=== PATIENT | male | born 1975 | race Caucasian/White ===

== ENCOUNTER 2017-12-14 04:00 | Emergency (ER) | payer SELFPAY | END 2017-12-14 04:54 | disposition home or self-care (01) | LOC: D.ER 04:00 | DX: J20.9 Acute bronchitis, unspecified (principal); M54.12 Radiculopathy, cervical region; F17.200 Nicotine dependence, unspecified, uncomplicated ==

== ENCOUNTER 2018-04-07 14:22 | Emergency (ER) | payer SELFPAY ==
[~2018-04-07] VITALS: Ht 170.2 cm; Wt 86.8 kg
[2018-04-07 14:42] VITALS: BP 138/81; Ht 170.2 cm; Wt 86.8 kg
[2018-04-07] MEDS ORDERED: TOPROL XL25 MG PO (14:44)
[2018-04-07 15:11] LABS: BASOPHILS 0.2 % (0-2); EOSINOPHILS 0.1 % (0-7); HEMATOCRIT 50.6 % (42.0-54.0); HEMOGLOBIN 17.7 g/dL (13.5-17.5); IMMATURE GRANULOCYTES 0.2 % (0-5); LYMPHOCYTES 12.6 % (15-50); MCH 29.4 pg (26.0-34.0); MCV 83.9 fL (80.0-100.0); MEAN PLATELET VOLUME 10.4 fL (7.4-10.4); MONOCYTES 10.7 % (2-11); NEUTROPHILS 76.2 % (40-80); PLATELET COUNT 306 10x3/uL (130-400); RBC 6.03 10x6/uL (4.20-6.10); RDW 14.1 % (11.5-14.5); WBC 9.7 10x3/uL (4.8-10.8)
[2018-04-07 15:33] LABS: ALBUMIN 4.8 g/dL (3.4-5.0); ANION GAP 15.4 mmol/L (8-16); BILIRUBIN - TOTAL 1.13 mg/dL (0.2-1.3); CALCIUM 9.1 mg/dL (8.5-10.1); CARBON DIOXIDE 25.2 mmol/L (21.0-32.0); CREATININE - SERUM 2.8 mg/dL (0.6-1.3); POTASSIUM - SERUM 3.6 mmol/L (3.5-5.1); PROTEIN - SERUM 8.7 g/dL (6.4-8.2)
[2018-04-07 16:01] LABS: APPEARANCE CLOUDY (CLEAR); BILIRUBIN NEGATIVE (NEGATIVE); COLOR AMBER (YELLOW); GLUCOSE NEGATIVE (NEGATIVE); KETONE SMALL mg/dL (NEGATIVE); NITRITE NEGATIVE (NEGATIVE); PROTEIN 1+ mg/dL (NEGATIVE); UROBILINOGEN NORMAL (NORMAL)
[2018-04-07 16:02] LABS: WHITE CELLS - URINE 0-5 /hpf (0-5)
[2018-04-07 16:03] LABS: BACTERIA FEW /hpf (NONE SEEN); EPITHELIAL CELLS 0-5 /hpf (0-5); HYALINE CAST 0-5 /lpf (NONE SEEN); MUCUS <1+ /lpf (NONE SEEN); RED CELLS - URINE 0-5 /hpf (0-5)
[2018-04-08 13:30] VITALS: Ht 170.2 cm; Wt 86.8 kg
== END 2018-04-07 15:53 | disposition left against medical advice (07) ==
LOC: D.ER 14:22
PROVIDERS: Emergency Medicine
DX: N17.9 Acute kidney failure, unspecified (principal); I10 Essential (primary) hypertension; F17.200 Nicotine dependence, unspecified, uncomplicated

== ENCOUNTER 2018-04-08 05:54 | Inpatient (IN) | payer SELFPAY ==
[~2018-04-08] VITALS: Ht 170.2 cm; Wt 86.4 kg
[~2018-04-08 05:54] MED LIST: TOPROL XL25 MG PO
[2018-04-08 07:05] VITALS: BP 107/66
[2018-04-08 07:21] VITALS: BP 105/75
[2018-04-08 07:50] LABS: ANION GAP 18.5 mmol/L (8-16); CALCIUM 8.3 mg/dL (8.5-10.1); CARBON DIOXIDE 23.1 mmol/L (21.0-32.0); MAGNESIUM - SERUM 1.9 mg/dL (1.8-2.4); POTASSIUM - SERUM 3.6 mmol/L (3.5-5.1)
[2018-04-08 07:51] LABS: CREATININE - SERUM 4.8 mg/dL (0.6-1.3)
[2018-04-08 09:53] VITALS: BP 119/78
[2018-04-08 10:09] LABS: APPEARANCE HAZY (CLEAR); BILIRUBIN NEGATIVE (NEGATIVE); COLOR DY (YELLOW); GLUCOSE NEGATIVE (NEGATIVE); KETONE NEGATIVE (NEGATIVE); NITRITE NEGATIVE (NEGATIVE); PROTEIN 2+ mg/dL (NEGATIVE); SPECIFIC GRAVITY 1.025 (1.005-1.020); UROBILINOGEN NORMAL (NORMAL)
[2018-04-08 10:11] LABS: AMORPHOUS SEDIMENT <1+ /lpf (NONE SEEN); BACTERIA MANY /hpf (NONE SEEN); EPITHELIAL CELLS 25-50 /hpf (0-5); MUCUS <1+ /lpf (NONE SEEN); WHITE CELLS - URINE 0-5 /hpf (0-5)
[2018-04-08 10:12] LABS: WAXY CAST OCC /lpf (NONE SEEN)
[2018-04-08 10:22] LABS: CREATININE - URINE 478.9 mg/dL (30-125)
[2018-04-08 11:06] VITALS: BP 114/75
[2018-04-08 13:22] VITALS: BP 114/75; BMI 29.8
[2018-04-08 13:30] VITALS: Ht 170.2 cm; Wt 86.4 kg
[2018-04-08 15:25] VITALS: BP 110/59
[2018-04-08 16:05] LABS: CREATINE KINASE 2911 UL (21-232)
[2018-04-08 16:06] LABS: CKMB 21.3 U/L (0.0-3.6)
== END 2018-04-08 15:51 | disposition left against medical advice (07) | DRG 684 ==
LOC: D.ER 05:54 → D.EDHOLD 10:08 → D.M2 10:17
PROVIDERS: Emergency Medicine; Internal Medicine Nephrology
DX: N17.9 Acute kidney failure, unspecified (principal); E86.0 Dehydration; Z59.0 Homelessness; I10 Essential (primary) hypertension; Z72.0 Tobacco use; I95.9 Hypotension, unspecified

== ENCOUNTER 2018-05-27 17:47 | Emergency (ER) | payer MEDICAID ==
[~2018-05-27] VITALS: Ht 170.2 cm; Wt 75.0 kg
[2018-05-27 17:56] VITALS: Ht 170.2 cm; Wt 75.0 kg
[2018-05-27 18:18] LABS: BASOPHILS 0.1 % (0-2); EOSINOPHILS 1.7 % (0-7); HEMATOCRIT 39.3 % (42.0-54.0); HEMOGLOBIN 13.5 g/dL (13.5-17.5); IMMATURE GRANULOCYTES 0.3 % (0-5); LYMPHOCYTES 8.7 % (15-50); MCH 29.3 pg (26.0-34.0); MCHC 34.4 g/dL (31.0-37.0); MCV 85.4 fL (80.0-100.0); MEAN PLATELET VOLUME 9.3 fL (7.4-10.4); MONOCYTES 6.2 % (2-11); PLATELET COUNT 305 10x3/uL (130-400); RDW 13.7 % (11.5-14.5); WBC 7.7 10x3/uL (4.8-10.8)
[2018-05-27 18:31] LABS: ALBUMIN 3.2 g/dL (3.4-5.0); ANION GAP 12.3 mmol/L (8-16); BILIRUBIN - TOTAL 0.36 mg/dL (0.2-1.3); CALCIUM 8.8 mg/dL (8.5-10.1); CARBON DIOXIDE 28.5 mmol/L (21.0-32.0); CREATININE - SERUM 1.2 mg/dL (0.6-1.3); POTASSIUM - SERUM 3.8 mmol/L (3.5-5.1); PROTEIN - SERUM 7.1 g/dL (6.4-8.2)
[2018-05-27 20:30] LABS: APPEARANCE CLEAR (CLEAR); BILIRUBIN NEGATIVE (NEGATIVE); COLOR YELLOW (YELLOW); GLUCOSE NEGATIVE (NEGATIVE); KETONE NEGATIVE (NEGATIVE); NITRITE NEGATIVE (NEGATIVE); PROTEIN NEGATIVE (NEGATIVE); UROBILINOGEN NORMAL (NORMAL)
[2018-05-27 20:34] LABS: UDS - AMPHET POSITIVE QUAL (NEGATIVE); UDS - BARB NEGATIVE QUAL (NEGATIVE); UDS - BENZO NEGATIVE QUAL (NEGATIVE); UDS - COCAINE NEGATIVE QUAL (NEGATIVE); UDS - OPIATE NEGATIVE QUAL (NEGATIVE); UDS - PCP NEGATIVE QUAL (NEGATIVE); UDS - THC POSITIVE QUAL (NEGATIVE)
[2018-05-27 20:59] VITALS: BP 135/80
== END 2018-05-27 20:59 | disposition home or self-care (01) ==
LOC: D.ER 17:47
PROVIDERS: Family Medicine
DX: K59.00 Constipation, unspecified (principal); I12.9 Hypertensive chronic kidney disease with stage 1 through stage 4 chronic kidney disease, or unspecified chronic kidney disease; N18.9 Chronic kidney disease, unspecified

== ENCOUNTER 2018-07-24 23:22 | Inpatient (IN) | payer MEDICAID ==
[~2018-07-24] VITALS: Ht 170.2 cm; Wt 61.4 kg
--- NOTE | ~2018-07-24 | OP ---
PATIENT NAME: ISIS JUNE MEDICAL RECORD: [id number] :71 LOCATION:D.MS Mejia2218 ADMISSION DATE:07/25/18 SURGEON: MELINA CARRILLO MD DATE OF OPERATION: 07/29/2018 PROCEDURES: 1. Left heart catheterization. 2. Selective coronary angiography. 3. Left ventriculogram. INDICATIONS: Angina and cardiomyopathy. PROCEDURE IN DETAIL: After informed consent was obtained with detailed description of risks and benefits as well as alternative therapies, the patient elected to proceed with angiogram and heart catheterization. The right radial area was prepped and draped in normal sterile fashion. Right radial artery was cannulated via modified Seldinger technique with placement of 5-Persian sheath. All catheters were exchanged through this sheath. FINDINGS: Left ventriculogram performed in standard 30-degree BARRIOS view reveals dilated cardiomyopathy. Ejection fraction of 15%. SELECTIVE CORONARY ANGIOGRAPHY: Left main, left anterior descending, left circumflex, and right coronary artery are smooth-walled vessels with no angiographic evidence of coronary artery disease. OVERALL IMPRESSION: 1. No angiographic evidence of coronary artery disease. 2. Dilated nonischemic cardiomyopathy. Ejection fraction 15%. Center medical management and treatment of the cardiomyopathy. TRANSINT:[id number] Voice Confirmation ID: [id number] DOCUMENT ID: [id number] MELINA CARRILLO MD at 1457 CC: [id number] DICTATION DATE: 07/29/18 1032 CONSUMER AFFAIRS DIRECTOR: 07/29/18 1101 DIS IN 07/29/18 [address] [place] [address]
--- NOTE | ~2018-07-24 | CN ---
PATIENT NAME:ISIS JUNE MEDICAL RECORD: [id number] : 71 LOCATION:D.MS Mejia2218 ADMIT DATE: 07/25/18 ACCOUNT: [id number] CONSULTING PHYSICIAN: MELINA CARRILLO MD REFERRING PHYSICIAN: DC GREEN MD DATE OF CONSULTATION: 07/28/2018 CARDIOLOGY CONSULT DIAGNOSES: 1. Dilated cardiomyopathy, ejection fraction of 15%. 2. Congestive heart failure, chronic systolic dysfunction. 3. Pneumonia. 4. Shortness of breath and dyspnea on exertion. 5. Tachycardia. HISTORY: This is a gentleman who presents with shortness of breath. This has been going on for quite a few weeks. It has escalated to the point of respiratory distress. He came in having large pleural effusions. He has had a pleural effusion drained by radiology. His breathing is better. Echocardiogram showed an ejection fraction of 15%. He has been having episodes of chest pain and chest pressure. He does have a family history of coronary disease. He is a smoker and a frequent meth user as well. Other than that, he has no cardiac risk factors. PHYSICAL EXAMINATION: GENERAL APPEARANCE: Well-nourished, well-developed, appears stated age. Level of distress, comfortable. PSYCHIATRIC: Mental status, alert, normal affect. Orientation, oriented to time, place and person. EYES: Lids and conjunctiva, noninjected. No discharge, no pallor. ENT: Lips, teeth, gums, normal dentition. Oropharynx, no cyanosis, no pallor. NECK: Carotid arteries, bilateral normal upstroke, no bruits, no thrills. JUGULAR VEINS: No jugular venous pressure or distention. CERVICAL LYMPH NODES: Nontender, nonenlarged. THYROID: Not enlarged. Nontender. No nodules. LUNGS: Respiratory effort, unlabored. CHEST: Normal curvature. No thoracic deformity. No chest wall tenderness. Percussion, resonant. Auscultation, clear. No wheezes, no rales, no rhonchi. CARDIOVASCULAR: Precordial exam, nondisplaced. No heaves or pericardial thrills. Rate and rhythm, regular. Heart sounds, normal S1, normal S2. No S3, no gallop, no rub. Systolic murmur, not heard. Diastolic murmur, not heard. EXTREMITIES: No cyanosis, no edema. Peripheral pulses, full and equal in all extremities, except as noted. No bruits appreciated. ABDOMEN: Soft, nondistended. Normal aorta. No bruit. Nontender. No masses. Liver, nontender, no hepatomegaly. Spleen, nontender, no splenomegaly. MUSCULOSKELETAL: No joint tenderness. No joint swelling. No erythema. NEUROLOGICAL: Normal gait, normal strength, normal tone. SKIN: Warm and dry. OVERALL IMPRESSION: Dilated cardiomyopathy with chest pressure and family history of coronary disease. We will proceed with coronary angiography. We will start medical therapy in the form of Coreg at 6.25 mg b.i.d. If he tolerates that from a blood pressure standpoint, I would add Entresto. CONSULT REPORT [id number] ISIS JUNE TRANSINT:[id number] Voice Confirmation ID: [id number] DOCUMENT ID: [id number] MELINA CARRILLO MD at 1457 CC: [id number] DICTATION DATE: 07/28/18 0847 DIRECTOR WORK: 07/28/18 1127 DIS IN 07/29/18 [id number] [place] [address]
--- NOTE | ~2018-07-24 | HEMODYNAMI ---
PATIENT:ISIS JUNE MEDICAL RECORD: [id number] : 71 LOCATION:D D.2218 ADMISSION DATE: 07/25/18 Generatedon:07/29/201810:35 Patient name: ISIS JUNE Patient #: [id number] SSN: : 1975 Date of study: 07/29/2018 Page: Of Hemodynamic Procedure Report Patient Data Patient Demographics Procedure consent was obtained First Name: ISIS Gender: Male Last Name: SLADE : 1975 Patient #: [id number] Age: 43 year(s) Race: Unknown Additional ID: [id number] Contact details Address: [address] [place] [address] State: [place] [facility] Zip code: [address] Past Medical History Allergies Allergen Reaction Date Comments Reported Other allergy 07/29/2018 PCN Admission Admission Data Admission Date: 07/25/2018 Admission Time: 2:47 Admit Source: Other Room #: D.2218 Procedure Procedure Types Cath Procedure Diagnostic Procedure LHC LHC w/Coronaries Procedure Description Procedure Date Procedure Date: 07/29/2018 Procedure Start Time: 10:25 Procedure End Time: 10:32 Procedure Staff Name Function Jc Loving MD Performing Physician Myles Reyes RT Monitor Bailey De Los Santos RT Scrub Anant Rosario RN Nurse Procedure Data Cath Procedure Fluoroscopy Diagnostic fluoroscopy Total fluoroscopy Time: 1 time: 1 min min Diagnostic fluoroscopy Total fluoroscopy dose: 349 dose: 349 mGy mGy Contrast Material Contrast Material Type Amount (ml) Isovue 300 47 Entry Location Entry Primary Successful Side Size Upsize Upsize Entry Closure Smalls ccessful Closure Location (Fr) 1 (Fr) 2 (Fr) Remarks Device Remarks Radial Right 6 Fr Mechanical artery Short Compression Estimated blood loss: 5 ml Diagnostic catheters Device Type Used For End Catheter Placement DIAGNOSTIC [place] 110cm 5 Procedure Fr catheter ([id number]) Procedure Complications No complications Procedure Medications Medication Administration Route Dosage Oxygen etCO2 Nasal cannula 2 l/min Lidocaine 2% added to field 20 Heparin Flush Bag added to field 2 bags (1000units/500ml NS) Radial Cocktail added to field 1 syringe (Verapomil 2mg/Nitro 400mcg/Heparin 1500units) Versed I.V. 2 mg Fentanyl I.V. 100 mcg Versed I.V. 2 mg Hemodynamics Rest Heart Rate: 83 (bpm) Snapshots Pre Cath Intra NCS Post Cath Vital Signs Time Heart Resp SPO2 etCO2 NIBP (mmHg) Rhythm Pain Sedation Rate (ipm) (%) (mmHg) Status Level (bpm) 10:16:22 92 18 99 33.3 129/89(98) NSR 0 (11) 10(A) , No pain 10:20:49 94 14 98 37.1 128/69(105) NSR 0 (11) 10(A) , No pain 10:24:58 91 14 94 38.6 117/81(91) NSR 0 (11) 10(A) , No pain 10:29:10 85 14 93 38.6 107/68(89) NSR 0 (11) 9(A) , No pain 10:32:27 90 11 92 37.1 116/73(87) NSR 0 (11) 10(A) , No pain Medications Time Medication Route Dose Verified Delivered Reason Notes Effectiveness by by 10:14:56 Oxygen etCO2 2 l/min Jc Ny used for Nasal Inder Rosario RN procedure cannula 10:15:02 Lidocaine 2% added 20ml Jc Greene for local to vial Inder Loving MD anesthetic field 10:15:08 Heparin Flush added 2 bags Jc Greene used for Bag to Inder Loving MD procedure (1000units/500ml field NS) 10:15:19 Radial Cocktail added 1 cJ Greene for (Verapomil to syringe Inder Loving MD vasodilation 2mg/Nitro field 400mcg/Heparin 1500units) 10:24:42 Versed I.V. 2 mg Jc Ny for sedation Inder Rosario RN 10:24:50 Fentanyl I.V. 100 mcg Jc Ny for sedation Inder Rosario RN 10:28:35 Versed I.V. 2 mg Jc Ny for sedation Inder Rosario RN Procedure Log Time Note 9:45:22 Anant Rosario RN sent for patient. Start room use. 9:59:04 Informed consent obtained and on chart 9:59:07 Admit Source: Other 9:59:19 Diagnostic Cath status Elective 9:59:23 Time tracking: Call back (After hours or weekends) 9:59:27 Plan of Care:Hemodynamics will remain stable., Cardiac rhythm will remain stable., Comfort level will be maintained., Respiratory function will remain adequate., Patient/ family verbilizes understanding of procedure., Procedure tolerated without complication., Recovers from procedure without complications.. 10:01:48 Patient received from Med/Surg to CCL 1 Alert and oriented. Tansferred to table in Supine position. 10:01:49 Warm blankets applied, and carlene hugger turned on for patient comfort. 10:01:50 Correct patient and procedure confirmed by team. 10:01:50 ECG and BP/O2 sat monitors applied to patient. 10:01:51 Pre-procedure instructions explained to patient. 10:01:51 Pre-op teaching completed and patient verbalized understanding. 10:01:53 Family in patients room. 10:01:57 Patient NPO since Midnight. 10:14:56 Oxygen 2 l/min etCO2 Nasal cannula was administered by Anant Rosario RN; used for procedure; 10:15:02 Lidocaine 2% 20ml vial added to field was administered by Jc Loving MD; for local anesthetic; 10:15:08 Heparin Flush Bag (1000units/500ml NS) 2 bags added to field was administered by Jc Loving MD; used for procedure; 10:15:19 Radial Cocktail (Verapomil 2mg/Nitro 400mcg/Heparin 1500units) 1 syringe added to field was administered by Jc Loving MD; for vasodilation; 10:15:22 Vital chart was started 10:22:07 Rhythm: sinus rhythm 10:22:08 Full Disclosure recording started 10:22:30 H&P Date Dictated: 07/25/2018 Within 30 days and on chart.. 10:22:40 Patient allergic to Other allergyPCN 10:22:42 Is the patient allergic to Iodine/contrast media? No. 10:22:43 Is patient on blood thinner?No 10:22:44 Patient diabetic? No. 10:22:45 Zero performed for pressure channel P1 10:22:48 Zero performed for pressure channel P1 10::51 Zero performed for pressure channel P1 10:23:51 Zero performed for pressure channel P1 10:24:00 Previous problem with sedation/anesthesia? No ? 10:24:00 Snore? Yes 10:24:01 Sleep apnea? No 10:24:02 Deviated septum? No 10:24:03 Opens mouth fully? Yes 10:24:04 Sticks out tongue? Yes 10:24:05 Airway obstruction? No ? 10:24:07 Dentures? No ? 10:24:09 Modified Stephen's test Ulnar < 7 seconds 10:24:11 Patient pain scale 0/10 ?. 10:24:14 IV patent on arrival in left forearm with 0.9% NaCl at [facility]. 10:24:15 Lab results completed and on chart. 10:24:18 Right Radial & Right Groin area was prepped with chlora-prep and draped in sterile fashion 10:24:18 Alarms reviewed by R. N. 10:24:19 Sharps counted by scrub and verified by R.N. 10:24:20 Use device set Radial Dx or PCI 10:24:21 ACIST Syringe (80090) opened to sterile field. 10:24:22 Medline Cath Pack ([id number]) opened to sterile field. 10:24:22 Bag Decanter (2002S) opened to sterile field. 10:24:23 ACIST Hand Control (03089) opened to sterile field. 10:24:24 ACIST Manifold (02321) opened to sterile field. 10:24:24 Tegaderm 4 x 4 (1626W) opened to sterile field. 10:24:25 MBrace Wrist Support ([id number]) opened to sterile field. 10:24:27 SHEATH 6FR Slender (96-1060) opened to sterile field. 10:24:28 DIAGNOSTIC WIRE .035 260cm J wire (441164) opened to sterile field. 10:24:32 Baseline sample Acquired. 10:24:34 Physician arrived 10:24:35 --------ALL STOP TIME OUT------ 10:24:35 Final Timeout: patient, procedure, and site verified with staff and physician. All members of the team are in agreement. 10:24:36 Right Radial & Right Groin site verified by team. 10:24:39 Physical assessment completed. ASA score P 2 - A patient with mild systemic disease as per Jc Loving MD. 10::41 Sedation plan: IV Moderate Sedation Medication:Versed, Fentanyl 10::42 Versed 2 mg I.V. was administered by Anant Rosario RN; for sedation; 10::50 Fentanyl 100 mcg I.V. was administered by Anant Rosario RN; for sedation; 10:25:08 Procedure started. 10:25:11 Local anesthetic to right radial artery with Lidocaine 2% by Jc Loving MD.INITIAL ACCESS ONLY 10:25:15 A DIAGNOSTIC [place] 110cm 5 Fr catheter ([id number]) was advanced over the wire and used for Procedure. 10:25:17 A 6 Fr Short sheath was inserted into the Right Radial artery 10::12 LV gram done using BARRIOS 10::14 Injector settings: Ml/sec: 5, Volume: 15, 10::19 EF : 15 % 10::21 LCA angiography performed. 10:27:23 RCA angiography performed. 10::53 Catheter removed. 10::35 Versed 2 mg I.V. was administered by Anant Rosario RN; for sedation; 10::29 TR BAND Standard (HFT80PCV) opened to sterile field. 10::38 Sheath removed intact; hemostasis achieved with Mechanical Compression to the Right Radial artery. 10::42 Procedure ended.(Physican Out) 10::35 Fluoroscopy time 01.00 minutes. 10:30:38 Flurop Dose total: 349 10::38 Fluoroscopy dose: 349 mGy 10::42 Contrast amount:Isovue 300 47ml. 10::43 Sharps counted by scrub and verified by R.N. 10:30:45 TR band inflated with 11cc of air. 10:30:46 Insertion/operative site no bleeding no hematoma. 10:30:50 Post right radial artery:stable, soft, clean and dry 10:30:52 Post Procedure Pulses reassessed and unchanged 10:30:54 Post-procedure physical assessment completed. ASA score P 2 - A patient with mild systemic disease as per Jc Loving MD. 10:31:08 Post procedure rhythm: unchanged. 10:31:10 Estimated blood loss: 5 ml 10:31:12 Post procedure instruction explained to patient.Patient verbalizes understanding. 10:31:12 Patient needs reinforcement of post procedure teaching. 10:31:19 Procedure type changed to Cath procedure, Diagnostic procedure, LHC, LHC w/Coronaries 10:32:30 Procedure and supply charges have been captured, reviewed, submitted and are correct. 10:32:32 Procedure Complication : No complications 10:32:34 Vital chart was stopped 10:32:35 See physician's report for complete and final results. 10:32:36 Report given to Pre/Post Procedure Room. 10:32:38 Patient transfered to Pre/Post Procedure Room with Stretcher. 10:32:40 Procedure ended. 10:32:40 Full Disclosure recording stopped 10:32:43 End room use (Document Last) Device Usage Item Name Manufacture Quantity Catalog Hospital Part Current Minimal Lot# / Number Charge Number Stock Stock Serial# Code ACIST Acist 1 90343 993360 869271 296415 20 Syringe Medical (05252) Systems Inc Medline Medline 1 [id number] 248893 82037 229954 5 Cath Pack ([id number]) Bag Microtek 1 633199 85896 519415 5 Decanter Medical Inc. () ACIST Hand Acist 1 04407 347397 578812 193436 5 Control Medical (31441) Systems Inc ACIST Acist 1 75420 081545 085738 641655 5 Manifold Medical (48364) Systems Inc Tegaderm 4 3M 1 1626W 487823 999723 468816 5 x 4 (1626W) MBrace Advanced 1 140-0250-00 478286 18370 413129 5 Wrist Vascular Support Dynamics ([id number]) SHEATH 6FR Terumo 1 [id number] 216146 179650 680019 5 Slender (80-1060) DIAGNOSTIC St Kiko 1 155701 128960 918977 525562 30 WIRE .035 260cm J wire (611137) TR BAND Terumo 1 [id number] 401650 843601 979876 40 Standard ([id number]) DIAGNOSTIC Terumo 1 40-2413 299640 279925 380707 5 [place] 110cm 5 Fr catheter (694558) Signature Audit [place] Stage Time Signature Unsigned Intra-Procedure 07/29/2018 Myles Reyes 10:34:57 AM RT(R) Signatures Monitor : Myles Reyes RT Signature : Date : Time : [address] [place] [address]
--- NOTE | ~2018-07-24 | MORECARE ---
CASE MANAGEMENT DISCHARGE SUMMARY PATIENT: ISIS JUNE UNIT: [id number] ADM DATE: 07/25/18 AGE: 43 : 71 SEX: M ROOM/BED: D.2218 AUTHOR: GEORGINA WEBSTER PHYSICIAN: REFERRING PHYSICIAN: DC GREEN MD DATE OF SERVICE: 08/01/18 Discharge Plan Patient Name: ISIS JUNE Facility: [facility]:[place] : 1975 Planned Disposition: Home Anticipated Discharge Date: Discharge Date: 07/29/2018 Expected LOS: 0 Initial Reviewer: [email or web address] Initial Review Date: 07/25/2018 Generated: 08/01/18 4:52 pm Comments DCP- Discharge Planning Updated by [email or web address]: Shameka Lord on 07/25/18 12:[address] Patient Name: ISIS JUNE Admission Status: ER Accout number: [id number] Admission Date: 07-25-2018 : 1975 Admission Diagnosis: Attending: DC GREEN Current LOS: 1 Anticipated DC Date: Planned Disposition: Home Primary Insurance: [place] [employer] [place] Discharge Planning Comments: CM met with patient and girlfriend (Karen) to assess discharge planning needs. He is independent with his care,. There are 3 steps to his home. He does not use any DME and is unsure if he will need any HH or DME at DC. Karen will be his bulk tank driver home. CM will continue to follow and assist with DC planning Speeder Tender: Shameka Lord DCPIA - Discharge Planning Initial Assessment Updated by [email or web address]: Shameka Lord on 07/25/18 1:41 pm * Is the patient Alert and Oriented? Yes * How many steps to enter\exit or inside your home? * PCP none * Pharmacy [facility] [address] * Preadmission Environment Home with Family * ADLs Independent * Equipment None * List name and contact numbers for known caregivers / representatives who currently or will assist patient after discharge: KAREN (GIRLFRIEND) [phone] * Verbal permission to speak to the caregivers and representatives has been obtained from the patient. Yes * Community resources currently utilized None * Additional services required to return to the preadmission environment? No * Can the patient safely return to the preadmission environment? Yes * Has this patient been hospitalized within the prior 30 days at any hospital? No Last DP export: 07/25/18 12:46 Patient Name: ISIS JUNE Page 36557 at 1552 All edits/amendments must be made on the electronic document DICTATION DATE: 08/01/181550 CONTROLLED AREA CHECKER: KEI 08/01/181550 RPT#: [id number] DC DATE:07/29/18 STATUS: DIS IN [facility] [address] [place] [address] END OF REPORT
--- NOTE | ~2018-07-24 | MORECARE ---
CASE MANAGEMENT DISCHARGE SUMMARY PATIENT: ISIS JUNE UNIT: [id number] ADM DATE: 07/25/18 AGE: 43 : 71 SEX: M ROOM/BED: D.2218 AUTHOR: GEORGINA WEBSTER PHYSICIAN: REFERRING PHYSICIAN: DC GREEN MD DATE OF SERVICE: 07/25/18 Discharge Plan Patient Name: ISIS JUNE Facility: [facility]:[place] : 1975 Planned Disposition: Home Anticipated Discharge Date: Discharge Date: Expected LOS: Initial Reviewer: [email or web address] Initial Review Date: 07/25/2018 Generated: 07/25/18 2:46 pm Comments DCP- Discharge Planning Updated by [email or web address]: Shameka Lord on 07/25/18 12:[address] Patient Name: ISIS JUNE Admission Status: ER Accout number: [id number] Admission Date: 07-25-2018 : 1975 Admission Diagnosis: Attending: DC GREEN Current LOS: 1 Anticipated DC Date: Planned Disposition: Home Primary Insurance: [employer] [place] [employer] [place] Discharge Planning Comments: CM met with patient and girlfriend (Karen) to assess discharge planning needs. He is independent with his care,. There are 3 steps to his home. He does not use any DME and is unsure if he will need any HH or DME at DC. Karen will be his courtesy driver home. CM will continue to follow and assist with DC planning Leather Novelty Parts Cutter: Shameka Lord DCPIA - Discharge Planning Initial Assessment Updated by [email or web address]: Shameka Lord on 07/25/18 1:41 pm * Is the patient Alert and Oriented? Yes * How many steps to enter\exit or inside your home? * PCP none * Pharmacy [facility] [address] * Preadmission Environment Home with Family * ADLs Independent * Equipment None * List name and contact numbers for known caregivers / representatives who currently or will assist patient after discharge: KAREN (GIRLFRIEND) [phone] * Verbal permission to speak to the caregivers and representatives has been obtained from the patient. Yes * Community resources currently utilized None * Additional services required to return to the preadmission environment? No * Can the patient safely return to the preadmission environment? Yes * Has this patient been hospitalized within the prior 30 days at any hospital? No Patient Name: ISIS JUNE Page 66239 at 1346 All edits/amendments must be made on the electronic document DICTATION DATE: 07/25/18 1346 WINDOW TINTER: KEI 07/25/18 1346 RPT#: [id number] DC DATE: STATUS: ADM IN [facility] [address] [place] [address] END OF REPORT
--- NOTE | ~2018-07-24 | EC ---
PATIENT:ISIS JUNE DATE OF SERVICE: 07/25/18 SEX: M MEDICAL RECORD: [id number] DATE OF : [birth year] LOCATION:D.MS Mejia221 AGE OF PATIENT: 43 ADMISSION DATE: 07/25/18 REFERRING PHYSICIAN: INTERPRETING PHYSICIAN: MELINA CARRILLO MD ECHOCARDIOGRAM REPORT ECHO CHARGES 4 ECHO COMPLETE Date: 07/26/18 CLINICAL DIAGNOSIS: ECHOCARDIOGRAPHIC MEASUREMENTS (adult normal given) AC root (d.<3.7cm) 4.2 cm LV Septum d (<1.2 cm> 1.2 cm Valve Excursion 2.5 cm LV Septum (systole) 1.4 cm Left Atria (s.<4.0cm> 4.9 cm LVPW d(<1.2cm) 1.1 cm RV (d.<2.3cm) 2.5 cm LVPW (sytole) 1.6 cm LV diastole(<5.6CM) 5.6 cm MV E-F(>70mm/sec) cm LV systole 4.3 cm LVOT Diameter 2.4 cm MV exc.(>10mm) cm Est.ejection fraction (50-75%) % DOPPLER: LVIT cm/sec A 45.0 cm/sec E 76.0 cm/sec LA cm/sec RVSP 51.2 mmHg LVOT 56.0 cm/sec AOP1/2T m/s Asc. Ao 88.0 cm/sec RVOT 56.0 cm/sec RA cm/sec PA 71.0 cm/sec AV Gradient Peak 3.1 mmHg AV Mean 1.6 mmHg AV Area 2.7 cm MV Gradient Peak 3.0 mmHg MV Mean 1.0 mmHg MV Area cm COMMENTS: Orthotics Technician: 1 AKIL KELLEY Admissions Manager Rn: 2 Dr. Valdes TAPE# PACS Pericardial Effusion Y DATE OF SERVICE: 07/26/2018 FINDINGS: 1. Left ventricular chamber size is within normal limits. Left ventricular systolic function is markedly reduced. Overall ejection fraction in the 15% range. 2. Left atrium is dilated at 4.9 cm. Right atrium and right ventricular chamber sizes are as well mildly dilated. 3. Valvular structures have normal structure and motion. 4. Doppler interrogation reveals mild mitral regurgitation and mild tricuspid ECHOCARDIOGRAM REPORT [id number] ISIS JUNE regurgitation. No other valvular insufficiency or stenosis. Pulmonary systolic pressure is estimated at 51 mmHg. 5. A large pleural effusion is present. 6. A small pericardial effusion is present. This is not at all hemodynamically significant. No evidence of left ventricular thrombus. TRANSINT:[id number] Voice Confirmation ID: [id number] DOCUMENT ID: [id number] MELINA CARRILLO MD at 1456 CC: [id number] DICTATION DATE: 07/26/[address]: 07/26/18 1627 DIS IN 07/29/18 [id number] [place] [address]
[2018-07-25 00:17] LABS: APTT 32.5 SECONDS (22.8-39.4); INR 1.17 (0.85-1.17); PROTIME 14.4 SECONDS (11.6-15.0)
[2018-07-25 00:18] LABS: D-DIMER-QUANTITATIVE 0.96 ug/mLFEU (0.20-0.54)
[2018-07-25 00:19] LABS: BASOPHILS 0.2 % (0-2); HEMATOCRIT 40.6 % (42.0-54.0); HEMOGLOBIN 13.6 g/dL (13.5-17.5); IMMATURE GRANULOCYTES 0.2 % (0-5); MCH 28.2 pg (26.0-34.0); MCHC 33.5 g/dL (31.0-37.0); MCV 84.2 fL (80.0-100.0); MONOCYTES 6.7 % (2-11); NEUTROPHILS 78.9 % (40-80); RBC 4.82 10x6/uL (4.20-6.10); RDW 13.5 % (11.5-14.5); WBC 11.2 10x3/uL (4.8-10.8)
[2018-07-25 00:20] LABS: PLATELET COUNT 430 10x3/uL (130-400)
[2018-07-25 00:22] LABS: ALBUMIN 2.6 g/dL (3.4-5.0); ALKALINE PHOSPHATASE 57 U/L (46-116); ALT (SGPT) 40 U/L (10-68); BILIRUBIN - TOTAL 0.29 mg/dL (0.2-1.3); CALC OSMOLALITY 272 mosm/kg (275-300); CALCIUM 8.3 mg/dL (8.5-10.1); CARBON DIOXIDE 27.1 mmol/L (21.0-32.0); CHLORIDE - SERUM 101 mmol/L (98-107); CREATININE - SERUM 1.1 mg/dL (0.6-1.3); POTASSIUM - SERUM 4.4 mmol/L (3.5-5.1); PROTEIN - SERUM 6.3 g/dL (6.4-8.2); SODIUM 137 mmol/L (136-145); UREA NITROGEN 14 mg/dL (7-18); eGFR NON AFRICAN AMERICAN 77 mL/min (90-120)
[2018-07-25 00:29] LABS: GLUCOSE 70 mg/dL (74-106)
[2018-07-25 00:31] LABS: CKMB 5.9 U/L (0.0-3.6); CREATINE KINASE 211 UL (21-232); PRO BNP 5464 pg/mL (0-125); TROPONIN-I 0.052 ng/mL (0.000-0.060)
[2018-07-25 00:37] VITALS: BP 130/84
[2018-07-25 01:37] VITALS: BP 138/94
[2018-07-25 02:37] VITALS: BP 128/74; BP 131/74
[2018-07-25] MEDS ORDERED: TOPROL XL25 MG PO (04:04)
[2018-07-25 04:13] VITALS: Ht 170.2 cm; Wt 61.4 kg
[2018-07-25 08:00] VITALS: BP 136/82; BP 145/77
[2018-07-25 09:44] LABS: BASOPHILS 0.2 % (0-2); EOSINOPHILS 2.5 % (0-7); HEMATOCRIT 39.7 % (42.0-54.0); HEMOGLOBIN 13.6 g/dL (13.5-17.5); IMMATURE GRANULOCYTES 0.1 % (0-5); LYMPHOCYTES 14.2 % (15-50); MCH 28.6 pg (26.0-34.0); MCHC 34.3 g/dL (31.0-37.0); MCV 83.4 fL (80.0-100.0); MEAN PLATELET VOLUME 9.8 fL (7.4-10.4); MONOCYTES 8.1 % (2-11); NEUTROPHILS 74.9 % (40-80); PLATELET COUNT 391 10x3/uL (130-400); RBC 4.76 10x6/uL (4.20-6.10); RDW 13.5 % (11.5-14.5); WBC 9.4 10x3/uL (4.8-10.8)
[2018-07-25 09:48] LABS: CALC OSMOLALITY 276 mosm/kg (275-300); CALCIUM 8.2 mg/dL (8.5-10.1); CARBON DIOXIDE 27.7 mmol/L (21.0-32.0); CHLORIDE - SERUM 102 mmol/L (98-107); CREATININE - SERUM 1.1 mg/dL (0.6-1.3); GLUCOSE 85 mg/dL (74-106); POTASSIUM - SERUM 3.9 mmol/L (3.5-5.1); SODIUM 139 mmol/L (136-145); UREA NITROGEN 12 mg/dL (7-18); eGFR NON AFRICAN AMERICAN 77 mL/min (90-120)
[2018-07-25 12:54] VITALS: BP 132/76
[2018-07-25 15:51] LABS: PROTEIN - BODY FLUID 1.2 G/DL
[2018-07-25 17:25] LABS: MACROPHAGES BF 2 %; NEUT - BF 71 %
[2018-07-25 20:41] VITALS: BP 128/91
[2018-07-26 01:03] VITALS: BP 139/72
[2018-07-26 04:39] VITALS: BP 128/95
[2018-07-26 06:14] LABS: APPEARANCE CLEAR (CLEAR); BILIRUBIN NEGATIVE (NEGATIVE); COLOR YELLOW (YELLOW); GLUCOSE NEGATIVE (NEGATIVE); KETONE NEGATIVE (NEGATIVE); NITRITE NEGATIVE (NEGATIVE); PH 5.5 (5.0-6.0); PROTEIN NEGATIVE (NEGATIVE); SPECIFIC GRAVITY 1.015 (1.005-1.020); UROBILINOGEN NORMAL (NORMAL)
[2018-07-26 06:25] LABS: UDS - AMPHET POSITIVE QUAL (NEGATIVE); UDS - BARB NEGATIVE QUAL (NEGATIVE); UDS - BENZO POSITIVE QUAL (NEGATIVE); UDS - COCAINE NEGATIVE QUAL (NEGATIVE); UDS - OPIATE POSITIVE QUAL (NEGATIVE); UDS - PCP NEGATIVE QUAL (NEGATIVE); UDS - THC NEGATIVE QUAL (NEGATIVE)
[2018-07-26 08:22] VITALS: BP 144/102
[2018-07-26 09:34] LABS: BASOPHILS 0.2 % (0-2); EOSINOPHILS 2.9 % (0-7); HEMATOCRIT 41.2 % (42.0-54.0); IMMATURE GRANULOCYTES 0.3 % (0-5); MCH 28.3 pg (26.0-34.0); MCV 83.2 fL (80.0-100.0); MEAN PLATELET VOLUME 9.7 fL (7.4-10.4); NEUTROPHILS 75.6 % (40-80); PLATELET COUNT 374 10x3/uL (130-400); RBC 4.95 10x6/uL (4.20-6.10); RDW 13.7 % (11.5-14.5); WBC 9.1 10x3/uL (4.8-10.8)
[2018-07-26 09:46] LABS: CALC OSMOLALITY 271 mosm/kg (275-300); CALCIUM 8.2 mg/dL (8.5-10.1); CARBON DIOXIDE 24.4 mmol/L (21.0-32.0); CHLORIDE - SERUM 103 mmol/L (98-107); CREATININE - SERUM 1.1 mg/dL (0.6-1.3); GLUCOSE 106 mg/dL (74-106); POTASSIUM - SERUM 4.3 mmol/L (3.5-5.1); SODIUM 136 mmol/L (136-145); UREA NITROGEN 12 mg/dL (7-18); eGFR NON AFRICAN AMERICAN 77 mL/min (90-120)
[2018-07-26 12:20] VITALS: BP 140/104
[2018-07-26 13:15] LABS: FUNGUS STAIN Final report (())
[2018-07-26 16:14] LABS: ACID FAST SMEAR Negative (()); AFB SPECIMEN PROCESSING Not Indicated (())
[2018-07-26 20:00] VITALS: BP 127/80
[2018-07-27] VITALS: BP 131/90
[2018-07-27 04:00] VITALS: BP 143/97
[2018-07-27 06:55] LABS: BASOPHILS 0.3 % (0-2); EOSINOPHILS 3.8 % (0-7); HEMATOCRIT 41.7 % (42.0-54.0); HEMOGLOBIN 14.3 g/dL (13.5-17.5); IMMATURE GRANULOCYTES 0.1 % (0-5); MCH 28.4 pg (26.0-34.0); MCHC 34.3 g/dL (31.0-37.0); MCV 82.9 fL (80.0-100.0); MEAN PLATELET VOLUME 10.2 fL (7.4-10.4); MONOCYTES 11.6 % (2-11); NEUTROPHILS 69.2 % (40-80); PLATELET COUNT 374 10x3/uL (130-400); RBC 5.03 10x6/uL (4.20-6.10); RDW 13.7 % (11.5-14.5); WBC 9.2 10x3/uL (4.8-10.8)
[2018-07-27 07:18] LABS: CALC OSMOLALITY 275 mosm/kg (275-300); CALCIUM 8.2 mg/dL (8.5-10.1); CARBON DIOXIDE 24.2 mmol/L (21.0-32.0); CHLORIDE - SERUM 103 mmol/L (98-107); CREATININE - SERUM 1.1 mg/dL (0.6-1.3); GLUCOSE 93 mg/dL (74-106); SODIUM 137 mmol/L (136-145); eGFR NON AFRICAN AMERICAN 77 mL/min (90-120)
[2018-07-27 07:22] LABS: UREA NITROGEN 17 mg/dL (7-18)
[2018-07-27 08:30] VITALS: BP 127/91
[2018-07-27 20:00] VITALS: BP 126/80
[2018-07-28] VITALS: BP 123/82
[2018-07-28 04:00] VITALS: BP 137/94
[2018-07-28 05:49] LABS: BASOPHILS 0.3 % (0-2); EOSINOPHILS 6.2 % (0-7); HEMATOCRIT 39.7 % (42.0-54.0); HEMOGLOBIN 13.3 g/dL (13.5-17.5); IMMATURE GRANULOCYTES 0.5 % (0-5); LYMPHOCYTES 22.5 % (15-50); MCH 27.9 pg (26.0-34.0); MCHC 33.5 g/dL (31.0-37.0); MCV 83.4 fL (80.0-100.0); MEAN PLATELET VOLUME 10.2 fL (7.4-10.4); MONOCYTES 12.3 % (2-11); NEUTROPHILS 58.2 % (40-80); PLATELET COUNT 358 10x3/uL (130-400); RBC 4.76 10x6/uL (4.20-6.10); RDW 13.6 % (11.5-14.5)
[2018-07-28 05:56] LABS: WBC 6.5 10x3/uL (4.8-10.8)
[2018-07-28 06:02] LABS: CALC OSMOLALITY 275 mosm/kg (275-300); CALCIUM 8.1 mg/dL (8.5-10.1); CHLORIDE - SERUM 104 mmol/L (98-107); GLUCOSE 89 mg/dL (74-106); POTASSIUM - SERUM 4.1 mmol/L (3.5-5.1); SODIUM 138 mmol/L (136-145); UREA NITROGEN 15 mg/dL (7-18); eGFR NON AFRICAN AMERICAN 86 mL/min (90-120)
[2018-07-28 09:03] VITALS: BP 129/84
[2018-07-28 12:30] VITALS: BP 115/68
[2018-07-28 20:00] VITALS: BP 120/69
[2018-07-29 04:00] VITALS: BP 121/83
[2018-07-29 05:09] LABS: BASOPHILS 0.4 % (0-2); EOSINOPHILS 5.9 % (0-7); HEMATOCRIT 40.6 % (42.0-54.0); HEMOGLOBIN 13.5 g/dL (13.5-17.5); IMMATURE GRANULOCYTES 0.4 % (0-5); LYMPHOCYTES 19.8 % (15-50); MCH 27.9 pg (26.0-34.0); MCHC 33.3 g/dL (31.0-37.0); MCV 83.9 fL (80.0-100.0); MEAN PLATELET VOLUME 10.2 fL (7.4-10.4); MONOCYTES 9.6 % (2-11); NEUTROPHILS 63.9 % (40-80); PLATELET COUNT 350 10x3/uL (130-400); RBC 4.84 10x6/uL (4.20-6.10); RDW 13.5 % (11.5-14.5); WBC 7.5 10x3/uL (4.8-10.8)
[2018-07-29 05:37] LABS: ANION GAP 13.8 mmol/L (8-16); CALCIUM 8.2 mg/dL (8.5-10.1); CARBON DIOXIDE 27.3 mmol/L (21.0-32.0); CREATININE - SERUM 1.2 mg/dL (0.6-1.3); POTASSIUM - SERUM 4.1 mmol/L (3.5-5.1)
[2018-07-29 08:10] VITALS: BP 113/75
[2018-07-29] MEDS ORDERED: COREG12.5 MG PO (13:43)
[2018-07-29] MEDS ORDERED: LASIX40 MG PO (13:43)
[2018-07-29] MEDS ORDERED: Nicoderm [PBKC] TRANSDERM (13:43)
[2018-07-29] MEDS ORDERED: K-TAB10 MEQ PO (13:44)
[2018-07-29] MEDS ORDERED: LEVAQUIN750 MG PO (13:44)
[2018-07-29 16:16] VITALS: BP 122/67
[2018-08-01 14:12] LABS: FUNGUS MYCOLOGY CULTURE Preliminary report (())
== END 2018-07-29 17:03 | disposition home or self-care (01) | DRG 291 ==
LOC: D.ER 23:22 → D.MS 07-25 02:47
PROVIDERS: Family Medicine; General Practice; Internal Medicine Nephrology
PROC: 0W993ZZ Drainage of Right Pleural Cavity, Percutaneous Approach (ICD-10-PCS; principal; 2018-07-25 14:00)
DX: I11.0 Hypertensive heart disease with heart failure (principal); J18.9 Pneumonia, unspecified organism; J96.91 Respiratory failure, unspecified with hypoxia; J91.8 Pleural effusion in other conditions classified elsewhere; F15.188 Other stimulant abuse with other stimulant-induced disorder; I50.23 Acute on chronic systolic (congestive) heart failure

== ENCOUNTER 2018-07-29 21:19 | Emergency (ER) | payer MEDICAID ==
[~2018-07-29] VITALS: Ht 170.2 cm; Wt 77.3 kg
[~2018-07-29 21:19] MED LIST changes: +COREG12.5 MG PO; +K-TAB10 MEQ PO; +LASIX40 MG PO; +LEVAQUIN750 MG PO; +Nicoderm [PBKC] TRANSDERM
[2018-07-29 21:30] VITALS: Ht 170.2 cm; Wt 77.3 kg
[2018-07-29 22:32] LABS: BASOPHILS 0.5 % (0-2); EOSINOPHILS 5.2 % (0-7); HEMATOCRIT 36.9 % (42.0-54.0); HEMOGLOBIN 12.2 g/dL (13.5-17.5); IMMATURE GRANULOCYTES 0.3 % (0-5); LYMPHOCYTES 20.7 % (15-50); MCHC 33.1 g/dL (31.0-37.0); MCV 84.6 fL (80.0-100.0); MEAN PLATELET VOLUME 9.8 fL (7.4-10.4); MONOCYTES 8.4 % (2-11); NEUTROPHILS 64.9 % (40-80); PLATELET COUNT 325 10x3/uL (130-400); RBC 4.36 10x6/uL (4.20-6.10); RDW 13.5 % (11.5-14.5); WBC 5.9 10x3/uL (4.8-10.8)
[2018-07-29 22:42] LABS: ALBUMIN 2.5 g/dL (3.4-5.0); ANION GAP 14.8 mmol/L (8-16); BILIRUBIN - TOTAL 0.17 mg/dL (0.2-1.3); CALCIUM 8.1 mg/dL (8.5-10.1); CARBON DIOXIDE 25.2 mmol/L (21.0-32.0); CREATININE - SERUM 1.2 mg/dL (0.6-1.3); PROTEIN - SERUM 6.4 g/dL (6.4-8.2)
[2018-07-29 23:38] VITALS: BP 138/85
== END 2018-07-29 23:39 | disposition home or self-care (01) ==
LOC: D.ER 21:19
PROVIDERS: Family Medicine
DX: J18.9 Pneumonia, unspecified organism (principal); R05 Cough; F17.200 Nicotine dependence, unspecified, uncomplicated

== ENCOUNTER 2018-08-30 15:38 | Emergency (ER) | payer MEDICAID ==
[~2018-08-30] VITALS: Ht 170.2 cm; Wt 74.1 kg
[2018-08-30 16:03] VITALS: Ht 170.2 cm; Wt 74.1 kg
[2018-08-30 16:20] LABS: BASOPHILS 0.9 % (0-2); EOSINOPHILS 5.4 % (0-7); HEMATOCRIT 41.4 % (42.0-54.0); LYMPHOCYTES 27.1 % (15-50); MCH 27.9 pg (26.0-34.0); MCHC 33.8 g/dL (31.0-37.0); MCV 82.6 fL (80.0-100.0); MEAN PLATELET VOLUME 9.8 fL (7.4-10.4); MONOCYTES 10.8 % (2-11); NEUTROPHILS 55.8 % (40-80); PLATELET COUNT 290 10x3/uL (130-400); RBC 5.01 10x6/uL (4.20-6.10); RDW 13.8 % (11.5-14.5); WBC 3.5 10x3/uL (4.8-10.8)
[2018-08-30 16:38] LABS: ALBUMIN 2.8 g/dL (3.4-5.0); ALKALINE PHOSPHATASE 60 U/L (46-116); ALT (SGPT) 32 U/L (10-68); BILIRUBIN - TOTAL 0.25 mg/dL (0.2-1.3); CALC OSMOLALITY 280 mosm/kg (275-300); CALCIUM 8.2 mg/dL (8.5-10.1); CARBON DIOXIDE 25.5 mmol/L (21.0-32.0); CHLORIDE - SERUM 101 mmol/L (98-107); CREATININE - SERUM 1.3 mg/dL (0.6-1.3); GLUCOSE 149 mg/dL (74-106); POTASSIUM - SERUM 4.3 mmol/L (3.5-5.1); PROTEIN - SERUM 6.7 g/dL (6.4-8.2); SODIUM 137 mmol/L (136-145); UREA NITROGEN 24 mg/dL (7-18); eGFR NON AFRICAN AMERICAN 63 mL/min (90-120)
[2018-08-30 16:39] LABS: APTT 30.2 SECONDS (22.8-39.4); INR 1.09 (0.85-1.17); PROTIME 13.6 SECONDS (11.6-15.0)
[2018-08-30 16:51] LABS: CKMB 2.4 U/L (0.0-3.6); CREATINE KINASE 146 UL (21-232); PRO BNP 1647 pg/mL (0-125)
[2018-08-30 18:11] LABS: APPEARANCE CLEAR (CLEAR); BILIRUBIN NEGATIVE (NEGATIVE); COLOR YELLOW (YELLOW); GLUCOSE NEGATIVE (NEGATIVE); KETONE NEGATIVE (NEGATIVE); NITRITE NEGATIVE (NEGATIVE); PROTEIN 2+ mg/dL (NEGATIVE); UROBILINOGEN NORMAL (NORMAL)
[2018-08-30 20:16] VITALS: BP 119/73
== END 2018-08-30 20:12 | disposition home or self-care (01) ==
LOC: D.ER 15:38
PROVIDERS: Family Medicine
DX: I11.0 Hypertensive heart disease with heart failure (principal); I50.9 Heart failure, unspecified; I45.10 Unspecified right bundle-branch block